=== PATIENT | female | born 1990 | race Caucasian/White ===

== ENCOUNTER 2021-03-02 11:26 | Observation (INO) | payer MEDICAID ==
[~2021-03-02] VITALS: Ht 162.6 cm; Wt 81.0 kg
[2021-03-02 11:45] VITALS: BP 106/67
[2021-03-02] MEDS ORDERED: PREN-99 MT (13:02)
[2021-03-02] MEDS ORDERED: LACTATED RINGERS 1,000 ML IV SCH (15:00)
== END 2021-03-02 15:10 | disposition home or self-care (01) ==
LOC: ER 11:26 → 8 EST LDRP 12:01
PROVIDERS: ADMIT Obstetrics & Gynecology; ATTEND Obstetrics & Gynecology
DX: O26.893 Other specified pregnancy related conditions, third trimester (principal); R10.9 Unspecified abdominal pain; Z3A.35 35 weeks gestation of pregnancy
CPT/HCPCS: 59025; 76805; 76818; 99281; G0378; 96360